=== PATIENT | male | born 1970 | race American Indian/Alaskan Native ===

== ENCOUNTER 2017-04-24 19:26 | Inpatient (IN) | payer OTHER ==
[2017-04-24 20:24] LABS: BASO # 0.01 K/mm3 (0.0-2.0); BASO % 0.1 % (0.0-3.0); EOS % 0.1 % (1.5-5.0); GRAN # 5.29 (1.4-6.5); GRAN % 69.8 % (50.0-68.0); HEMOGLOBIN 15.7 gm/dL (14.0-18.0); LYMPH # 1.3 (1.2-3.4); LYMPH % 16.7 % (22.0-35.0); MEAN CELL VOLUME 89.4 fL (80.0-105.0); MEAN CORPUSCULAR HGB CONC 35.8 g/dl (31.0-37.0); MEAN PLATELET VOLUME 9.6 fl (7.0-11.0); MONO % 13.3 % (1.0-6.0); PLATELET COUNT 183 10^3/uL (120.0-450.0); RED CELL DISTRIBUTION WIDTH 12.2 % (11.5-14.5); WHITE BLOOD COUNT 7.6 10^3/ul (4.5-11.0)
[2017-04-24 20:26] LABS: VENOUS BLOOD GAS BASE EXCESS 1.3 mmol/L (0.0-2.0); VENOUS BLOOD GAS PO2 36 mm/Hg (30-55); VENOUS BLOOD PH 7.42 (7.32-7.43)
[2017-04-24 20:58] LABS: INFLUENZA A B NEGATIVE FOR FLU A/B (NEGATIVE)
--- NOTE | 2017-04-24 21:16 | ED PDOC ---
Arrival/HPI - General Chief Complaint: Flu-like Symptoms Time Seen by Provider: 04/24/17 19:44 Historian: Patient - History of Present Illness Narrative History of Present Illness (Text): 04/24/17 19:45 Dony Vogt is a 46 year old male who presents to the Emergency department complaining of fever for 5 days. Patient reports associated chills and poor appetite. Patient denies any chest pain, shortness of breath, nausea, vomiting, diarrhea, urinary symptoms, back pain, neck pain, headache, dizziness, or any other complaints. Time/Duration: < week (5 days) Symptom Onset: Gradual Symptom Course: Unchanged Activities at Onset: Rest, Light Context: Home Past Medical History - Provider Review Nursing Documentation Reviewed: Yes - Psychiatric Hx Substance Use: No - Anesthesia Hx Anesthesia: No Family/Social History - Physician Review Nursing Documentation Reviewed: Yes Family/Social History: Unknown Family HX Smoking Status: Never Smoked Hx Alcohol Use: Yes Frequency of alcohol use: Socially Hx Substance Use: No Allergies/Home Meds Allergies/Adverse Reactions: Allergies No Known Allergies Allergy (Verified 04/24/17 19:34) Home Medications: Home Meds Medication Instructions Recorded Confirmed No Known Home Med 04/24/17 04/24/17 Review of Systems - Physician Review All systems were reviewed & negative as marked: Yes - Review of Systems Constitutional: Fevers, Other (+chills) Eyes: Normal ENT: Normal Respiratory: Normal Cardiovascular: Normal Gastrointestinal: Appetite Changes (+poor appetite) Genitourinary Male: Normal Musculoskeletal: Normal Skin: Normal Neurological: Normal Endocrine: Normal Hemo/Lymphatic: Normal Psychiatric: Normal Physical Exam Vital Signs Reviewed: Yes Vital Signs Temp Pulse Resp BP Pulse Ox 04/25/17 00:15 102.8 F H 04/24/17 23:35 89 18 152/102 H 99 04/24/17 23:26 102.8 F H 04/24/17 22:06 95 H 18 148/84 99 04/24/17 20:13 103.2 F H 107 H 18 167/96 H 99 Temperature: Febrile Blood Pressure: Hypertensive Pulse: Regular Respiratory Rate: Normal Appearance: Positive for: Well-Appearing, Non-Toxic, Comfortable Pain Distress: None Mental Status: Positive for: Alert and Oriented X 3 - Systems Exam Head: Present: Atraumatic, Normocephalic Pupils: Present: PERRL Extroacular Muscles: Present: EOMI Conjunctiva: Present: Normal Mouth: Present: Moist Mucous Membranes Neck: Present: Normal Range of Motion Respiratory/Chest: Present: Clear to Auscultation, Good Air Exchange. No: Respiratory Distress, Accessory Muscle Use Cardiovascular: Present: Regular Rate and Rhythm, Normal S1, S2. No: Murmurs Abdomen: Present: Normal Bowel Sounds. No: Tenderness, Distention, Peritoneal Signs Back: Present: Normal Inspection Upper Extremity: Present: Normal Inspection. No: Cyanosis, Edema Lower Extremity: Present: Normal Inspection. No: Edema Neurological: Present: GCS=15, CN II-XII Intact, Speech Normal Skin: Present: Warm, Dry, Normal Color. No: Rashes Psychiatric: Present: Alert, Oriented x 3, Normal Insight, Normal Concentration Medical Decision Making ED Course and Treatment: 04/24/17 19:45 Impression: 46 year old male complaining of fever, chills, and poor appetite x 5 days. Plan: -- EKG -- Chest X-ray -- Labs, VBG, blood cultures, throat cultures -- Rapid strep, rapid influenza -- Urinalysis, urine cultures -- Tylenol -- Reassess and disposition Progress Notes: Reviewed EKG, NSR at [address]-segment elevations or depressions, no T-wave inversions, normal intervals. 04/24/17 21:15 Reviewed radiology, Chest X-ray shows left upper lobe infiltrate. 04/24/17 22:10 Multiple calls placed to Dr. Lopez, no call back. 04/24/17 22:12 Case discussed with medical assembly communications program manager, who is aware and agrees with plan. 04/24/17 22:[address] Layton, who is aware and agrees with plan. Accepts pt in to hospitalist service. Pt will be admitted to [facility] for pneumonia. Pt in no acute distress. Discussed results and hospital admission plan with pt, who is aware and verbalizes understanding. - Lab Interpretations Lab Results: 04/24/17 19:45 04/24/17 19:45 Lab Results 04/24/17 21:30: Urine Color Yellow, Urine Appearance Sl cloudy, Urine pH 6.5, Ur Specific [place] 1.025, Urine Protein >=300 H, Urine Glucose (UA) Negative, Urine Ketones Trace H, Urine Blood Small H, Urine Nitrate Negative, Urine Bilirubin Negative, Urine Urobilinogen >=8.0, Ur Leukocyte Esterase Negative, Urine RBC 2 - 5, Urine WBC 2 - 5, Ur Epithelial Cells 4 - 5, Urine Bacteria Mod 04/24/17 20:20: Influenza Typ A,B (EIA) Negative for flu a/b, Grp A Beta Strep Ag Negative 04/24/17 19:45: Sodium 134, Chloride 95 L, Potassium 4.3, Carbon Dioxide 26, Anion Gap 17, BUN 16, Creatinine 1.1, Est GFR ( Amer) > 60, Est GFR (Non- Af Amer) > 60, Random Glucose 105, Calcium 9.0, Magnesium 2.2, Total Bilirubin 0.6, AST 45, ALT 55, Alkaline Phosphatase 67, Total Protein 7.7, Albumin 4.0, Globulin 3.7, Albumin/Globulin Ratio 1.1 04/24/17 19:45: pO2 36, VBG pH 7.42, VBG pCO2 40.0, VBG HCO3 25.9, VBG Total CO2 27.1, VBG O2 Sat (Calc) 76.8 H, VBG Base Excess 1.3, VBG Potassium 4.2, Sodium 132.0, Chloride 96.0 L, Glucose 113 H, Lactate 2.3 H, FiO2 21.0, Venous Blood Potassium 4.2 04/24/17 19:45: WBC 7.6, RBC 4.90, Hgb 15.7, Hct 43.8, MCV 89.4, MCH 32.0, MCHC 35.8, RDW 12.2, Plt Count 183, MPV 9.6, Gran % 69.8 H, Lymph % (Auto) 16.7 L, [place] % (Auto) 13.3 H, Eos % (Auto) 0.1 L, Baso % (Auto) 0.1, Gran # 5.29, Lymph # 1.3, [place] # 1.0 H, Eos # 0.0, Baso # 0.01 I have reviewed the lab results: Yes - RAD Interpretation Radiology Orders: 04/24/17 19:55 CHEST TWO VIEWS (PA/LAT) [RAD] Stat Button Grader: ED Physician - EKG Interpretation Interpreted by ED Physician: Yes Type: 12 lead EKG - Medication Orders Current Medication Orders: Acetaminophen (Tylenol 325mg Tab) 650 mg PO Q4H PRN PRN Reason: Temperature Last Admin: 04/25/17 00:15 Dose: 650 mg Ceftriaxone Sodium (Rocephin 1 Gram Ivpb) 1 gm in 100 mls @ 100 mls/hr IVPB DAILY RHEA PRN Reason: Protocol Azithromycin (Zithromax 500mg In Ns) 500 mg in 250 mls @ 167 mls/hr IVPB DAILY RHEA PRN Reason: Protocol Pantoprazole Sodium (Protonix Inj) 40 mg IVP DAILY RHEA Discontinued Medications Acetaminophen (Tylenol 325mg Tab) 650 mg PO STAT STA Stop: 04/24/17 20:42 Last Admin: 04/24/17 20:50 Dose: 650 mg Ceftriaxone Sodium (Rocephin 1 Gram Ivpb) 1 gm in 100 mls @ 200 mls/hr IVPB STAT STA PRN Reason: Protocol Stop: 04/24/17 21:50 Last Admin: 04/24/17 21:50 Dose: 200 mls/hr Azithromycin (Zithromax 500mg In Ns) 500 mg in 250 mls @ 167 mls/hr IVPB STAT STA PRN Reason: Protocol Stop: 04/24/17 22:50 Last Admin: 04/25/17 00:05 Dose: 167 mls/hr - Scribe Statement The provider has reviewed the documentation as recorded by the Scribmaikel Moe All medical record entries made by the Naheedibmaikel were at my direction and personally dictated by me. I have reviewed the chart and agree that the record accurately reflects my personal performance of the history, physical exam, medical decision making, and the department course for this patient. I have also personally directed, reviewed, and agree with the discharge instructions and disposition. Disposition/Present on Arrival - Present on Arrival Any Indicators Present on Arrival: No History of DVT/PE: No History of Uncontrolled Diabetes: No Urinary Catheter: No History of Decub. Ulcer: No History Surgical Site Infection Following: None - Disposition Have Diagnosis and Disposition been Completed?: Yes Diagnosis: Pneumonia Disposition: HOSPITALIZED Disposition Time: 22:45 Condition: GOOD
[2017-04-24] MEDS ORDERED: cefTRIAXone 1 gm 1 GM/100 ML BAG IVPB STA (21:21)
[2017-04-24 21:24] LABS: ALB/GLOB RATIO 1.1 (1.1-1.8); ALT/SGPT 55 U/L (7-56); AST/SGOT 45 U/L (15-59); BLOOD UREA NITROGEN 16 mg/dL (7-21); GFR AFRICAN-AMERICAN > 60; GFR NON-AFRICAN AMERICAN > 60; MAGNESIUM 2.2 mg/dL (1.7-2.2)
[2017-04-24 21:48] LABS: PH,URINE 6.5 (4.7-8.0); URINE BILIRUBIN NEGATIVE (NEGATIVE); URINE BLOOD SMALL (NEGATIVE); URINE GLUCOSE (UA) NEGATIVE (NEGATIVE); URINE LEUKOCYTE ESTERASE NEGATIVE Leu/uL (NEGATIVE); URINE NITRATE NEGATIVE (NEGATIVE); URINE PROTEIN >=300 mg/dL (<30 mg/dL); URINE UROBILINOGEN >=8.0 E.U./dL (<1 E.U./dL)
[2017-04-24 21:55] LABS: URINE APPEARANCE SL CLOUDY (CLEAR); URINE COLOR YELLOW (YELLOW)
[2017-04-24 22:02] LABS: URINE BACTERIA MOD (NEG)
[2017-04-24] MEDS: Azithromycin 500MG/NS 250ml 500 MG/250 ML BAG IVPB STA (22:14)
[2017-04-25] MEDS: Azithromycin 500MG/NS 250ml 500 MG/250 ML BAG IVPB STA (00:05)
[2017-04-25 00:26] LABS: VENOUS BLOOD GAS BASE EXCESS -1.2 mmol/L (0.0-2.0); VENOUS BLOOD GAS PO2 38 mm/Hg (30-55); VENOUS BLOOD PH 7.39 (7.32-7.43)
--- NOTE | 2017-04-25 00:58 | CP.PCM.HP ---
<DELORIS ESTES - Last Filed: 04/25/17 00:50> History of Present Illness - History of Present Illness History of Present Illness: 46 yo M presents with cc of fever and chills. Pt states that he began to feel ill 5 days ago and has progressively worsened. Pt reports intermittent BERNARD as well decreased appetite during this time, however pt denied any nausea or vomiting. Pt denied any alleviating or aggravating factors. Pt denied CP, palpatations, SOB, cough, abdominal pain, diarrhea, constipation, syncopal episodes, body aches, or any recent sick contacts. PMHx: denied Surg: denied FHx: DM All: denied SH: Occasional EtOH, denied tobacco and illict drug use Present on Admission - Present on Admission Any Indicators Present on Admission: No Review of Systems - Review of Systems All systems: reviewed and no additional remarkable complaints except (12 point ROS negative other than those stated in HPI) Past Patient History - Past Social History Smoking Status: Never Smoked - PSYCHIATRIC Hx Substance Use: No - SURGICAL HISTORY Hx Surgeries: No - ANESTHESIA Hx Anesthesia: No Meds Allergies/Adverse Reactions: Allergies Allergy/AdvReac Type Severity Reaction Status Date / Time No Known Allergies Allergy Verified 04/24/17 19:34 Physical Exam - Constitutional Appears: No Acute Distress - Head Exam Head Exam: ATRAUMATIC, NORMOCEPHALIC - Eye Exam Eye Exam: EOMI, PERRL - ENT Exam ENT Exam: Mucous Membranes Moist - Neck Exam Neck exam: Positive for: Full Rom. Negative for: Lymphadenopathy, Tenderness, Thyromegaly - Respiratory Exam Respiratory Exam: Clear to Auscultation Bilateral. absent: Rales, Rhonchi, Wheezes - Cardiovascular Exam Cardiovascular Exam: RRR, +S1, +S2. absent: Diastolic murmur, Gallop, Rubs, Systolic Murmur - GI/Abdominal Exam GI & Abdominal Exam: Soft. absent: Distended, Guarding, Organomegaly, Rebound, Tenderness - Extremities Exam Extremities exam: Positive for: normal inspection. Negative for: pedal edema, tenderness - Neurological Exam Neurological exam: Alert, Oriented x3, Reflexes Normal - Skin Skin Exam: Diaphoretic, Intact, Normal Color Results - Vital Signs Recent Vital Signs: Last Vital Signs Temp 102.8 F H 04/25/17 00:15 Pulse 89 04/24/17 23:35 Resp 18 04/24/17 23:35 BP 152/102 H 04/24/17 23:35 Pulse Ox 99 04/24/17 23:35 - Labs Result Diagrams: 04/24/17 19:45 04/24/17 19:45 Labs: Laboratory Results - last 24 hr 04/24/17 23:59 pO2 38 VBG pH 7.39 VBG pCO2 39.0 L VBG HCO3 23.6 VBG Total CO2 24.8 VBG O2 Sat (Calc) 75.5 H VBG Base Excess -1.2 L VBG Potassium 4.0 Sodium 133.0 Chloride 100.0 Glucose 101 Lactate 2.0 FiO2 21.0 Venous Blood Potassium 4.0 Assessment & Plan - Assessment and Plan (Free Text) Assessment: 46 yo M who presents with cc of fever and chills will be admitted for evaluation and treatment for pneumonia. 1. Pneumonia -CXR probable consolidation in left upper lobe -F/u blood, urine, sputum cultures -Negative Flu, strep, and UA -Cont rocephin and zithromax -Tylenol PRN for fever 2. HTN -Likely 2/2 pneumonia -Cont. to monitor 3. GI/DVT PPx -Protonix -SCDs Pt was seen and discussed in detail with Dr. Layton. <Lee Layton - Last Filed: 04/25/17 03:36> Results - Vital Signs Recent Vital Signs: Last Vital Signs Temp 102.8 F H 04/25/17 00:15 Pulse 89 04/24/17 23:35 Resp 18 04/24/17 23:35 BP 152/102 H 04/24/17 23:35 Pulse Ox 99 04/24/17 23:35 - Labs Result Diagrams: 04/24/17 19:45 04/24/17 19:45 Labs: Laboratory Results - last 24 hr 04/24/17 23:59 pO2 38 VBG pH 7.39 VBG pCO2 39.0 L VBG HCO3 23.6 VBG Total CO2 24.8 VBG O2 Sat (Calc) 75.5 H VBG Base Excess -1.2 L VBG Potassium 4.0 Sodium 133.0 Chloride 100.0 Glucose 101 Lactate 2.0 FiO2 21.0 Venous Blood Potassium 4.0 Attending/Attestation - Attestation I have personally seen and examined this patient.: Yes I have fully participated in the care of the patient.: Yes I have reviewed all pertinent clinical information: Yes Notes (Text): 04/25/17 03:27 Patient was seen when he was in room # 15 in the ER. Abdi with history , physical examination, assessment and plan. Has fever with chills, anorexia , head ache of 3 days duration.Head ache is moderate, intermittent in left eye area.Give PMH of walking pneumonia once in the s, had colonoscopy 2 months ago where a polyp was removed, has family history of DM (Mother),consumes alcohol occasionally, is divorcee with 3 children, works in sales, lives in [place] in a 2 family house, uses reading glasses, has history of chest pains , and blood clot on left side one week ago.
[2017-04-25 07:27] LABS: VENOUS BLOOD GAS BASE EXCESS -2.8 mmol/L (0.0-2.0); VENOUS BLOOD GAS PO2 111 mm/Hg (30-55); VENOUS BLOOD PH 7.38 (7.32-7.43)
[2017-04-25 07:28] LABS: HEMOGLOBIN 14.5 gm/dL (14.0-18.0); MEAN CELL VOLUME 88.3 fL (80.0-105.0); MEAN CORPUSCULAR HEMOGLOBIN 31.4 pg (25.0-35.0); MEAN CORPUSCULAR HGB CONC 35.5 g/dl (31.0-37.0); MEAN PLATELET VOLUME 9.5 fl (7.0-11.0); RBC 4.62 10^6/uL (3.5-6.1); RED CELL DISTRIBUTION WIDTH 12.5 % (11.5-14.5)
[2017-04-25 07:39] LABS: ALT/SGPT 71 U/L (7-56); AST/SGOT 67 U/L (15-59); BLOOD UREA NITROGEN 15 mg/dL (7-21); CALCIUM 8.8 mg/dL (8.4-10.5); GFR AFRICAN-AMERICAN > 60; GFR NON-AFRICAN AMERICAN > 60; MAGNESIUM 2.3 mg/dL (1.7-2.2)
--- NOTE | 2017-04-25 09:27 | RAD ---
HISTORY: fall COMPARISON: No prior. TECHNIQUE: Chest PA and lateral FINDINGS: LUNGS: There is a dense alveolar infiltrate in the left upper lobe that is best seen on the lateral view. PLEURA: No significant pleural effusion identified. No pneumothorax apparent. CARDIOVASCULAR: Normal. OSSEOUS STRUCTURES: No significant abnormalities. VISUALIZED UPPER ABDOMEN: Normal. OTHER FINDINGS: None. IMPRESSION: Left upper lobe pneumonia
[2017-04-25] MEDS: cefTRIAXone 1 gm 1 GM/100 ML BAG IVPB SCH (10:58)
[2017-04-25] MEDS: Azithromycin 500MG/NS 250ml 500 MG/250 ML BAG IVPB SCH (10:59)
[2017-04-25 16:59] LABS: HEPATITIS B SURFACE AG NEGATIVE (NEGATIVE)
[2017-04-25 17:06] LABS: HEPATITIS A IGM NEGATIVE (NEGATIVE); HEPATITIS B CORE AB NEGATIVE (NEGATIVE)
[2017-04-25 17:17] LABS: HEPATITIS C ANTIBODY NEGATIVE (NEGATIVE)
--- NOTE | 2017-04-25 21:15 | CARD ---
APPROVED REPORT EKG Measurement Heart [id number] <Conclusion> Normal sinus rhythm Possible Left atrial enlargement Borderline ECG
[2017-04-26 07:43] LABS: HEMOGLOBIN 14.2 gm/dL (14.0-18.0); MEAN CELL VOLUME 88.4 fL (80.0-105.0); MEAN CORPUSCULAR HEMOGLOBIN 31.1 pg (25.0-35.0); MEAN CORPUSCULAR HGB CONC 35.1 g/dl (31.0-37.0); MEAN PLATELET VOLUME 9.3 fl (7.0-11.0); RBC 4.57 10^6/uL (3.5-6.1); RED CELL DISTRIBUTION WIDTH 12.7 % (11.5-14.5); WHITE BLOOD COUNT 4.8 10^3/ul (4.5-11.0)
[2017-04-26 07:58] LABS: ALBUMIN 3.8 g/dL (3.0-4.8); ALT/SGPT 94 U/L (7-56); AST/SGOT 72 U/L (15-59); BLOOD UREA NITROGEN 18 mg/dL (7-21); CALCIUM 8.8 mg/dL (8.4-10.5); GFR AFRICAN-AMERICAN > 60; GFR NON-AFRICAN AMERICAN > 60
[2017-04-26] MEDS: Azithromycin 500MG/NS 250ml 500 MG/250 ML BAG IVPB SCH (09:46)
[2017-04-26] MEDS: cefTRIAXone 1 gm 1 GM/100 ML BAG IVPB SCH (09:47)
--- NOTE | 2017-04-26 15:57 | CP.PCM.DIS ---
<TAIWO BUITRAGO - Last Filed: 04/26/17 15:46> Provider - Provider Date of Admission: 04/24/17 22:37 Attending physician: Breanna Gonzalez MD Primary care physician: NO PRIMARY CARE PROVIDER Consults: None Time Spent in preparation of Discharge (in minutes): 41 Hospital Course - Lab Results Lab Results: Most Recent Lab Values WBC 4.8 10^3/ul (4.5-11.0) D 04/26/17 07:30 RBC 4.57 10^6/uL (3.5-6.1) 04/26/17 07:30 Hgb 14.2 gm/dL (14.0-18.0) 04/26/17 07:30 Hct 40.4 % (42.0-52.0) L 04/26/17 07:30 MCV 88.4 fL (80.0-105.0) 04/26/17 07:30 MCH 31.1 pg (25.0-35.0) 04/26/17 07:30 MCHC 35.1 g/dl (31.0-37.0) 04/26/17 07:30 RDW 12.7 % (11.5-14.5) 04/26/17 07:30 Plt Count 188 10^3/uL (120.0-450.0) 04/26/17 07:30 MPV 9.3 fl (7.0-11.0) 04/26/17 07:30 Gran % 69.8 % (50.0-68.0) H 04/24/17 19:45 Lymph % (Auto) 16.7 % (22.0-35.0) L 04/24/17 19:45 [place] % (Auto) 13.3 % (1.0-6.0) H 04/24/17 19:45 Eos % (Auto) 0.1 % (1.5-5.0) L 04/24/17 19:45 Baso % (Auto) 0.1 % (0.0-3.0) 04/24/17 19:45 Gran # 5.29 (1.4-6.5) 04/24/17 19:45 Lymph # 1.3 (1.2-3.4) 04/24/17 19:45 [place] # 1.0 (0.1-0.6) H 04/24/17 19:45 Eos # 0.0 (0.0-0.7) 04/24/17 19:45 Baso # 0.01 K/mm3 (0.0-2.0) 04/24/17 19:45 pO2 111 mm/Hg (30-55) H 04/25/17 07:05 VBG pH 7.38 (7.32-7.43) 04/25/17 07:05 VBG pCO2 37.0 (40-60) L 04/25/17 07:05 VBG HCO3 21.9 mmol/l (21-28) 04/25/17 07:05 VBG Total CO2 23.0 mmol.L (22-28) 04/25/17 07:05 VBG O2 Sat (Calc) 99.5 % (40-65) H 04/25/17 07:05 VBG Base Excess -2.8 mmol/L (0.0-2.0) L 04/25/17 07:05 VBG Potassium 5.2 mmol/L (3.6-5.2) 04/25/17 07:05 Sodium 150.0 mmol/L (132-148) H 04/25/17 07:05 Chloride 84.0 mmol/L (98-107) L 04/25/17 07:05 Glucose 117 mg/dl (75-110) H 04/25/17 07:05 Lactate 1.1 mmol/L (0.7-2.1) 04/25/17 07:05 FiO2 21.0 % 04/25/17 07:05 Sodium 136 mmol/L (132-148) 04/26/17 07:30 Potassium 4.2 mmol/L (3.6-5.0) 04/26/17 07:30 Chloride 100 mmol/L (98-107) 04/26/17 07:30 Carbon Dioxide 24 mmol/L (21-33) 04/26/17 07:30 Anion Gap 16 (10-20) 04/26/17 07:30 BUN 18 mg/dL (7-21) 04/26/17 07:30 Creatinine 0.8 mg/dL (0.5-1.4) 04/26/17 07:30 Est GFR ( Amer) > 60 04/26/17 07:30 Est GFR (Non-Af Amer) > 60 04/26/17 07:30 Random Glucose 102 mg/dL (70-110) 04/26/17 07:30 Calcium 8.8 mg/dL (8.4-10.5) 04/26/17 07:30 Phosphorus 3.9 mg/dL (2.5-4.5) 04/25/17 07:05 Magnesium 2.3 mg/dL (1.7-2.2) H 04/25/17 07:05 Total Bilirubin 0.4 mg/dL (0.2-1.3) 04/26/17 07:30 AST 72 U/L (15-59) H 04/26/17 07:30 ALT 94 U/L (7-56) H 04/26/17 07:30 Alkaline Phosphatase 67 U/L (38-133) 04/26/17 07:30 Total Protein 7.9 g/dL (5.8-8.3) 04/26/17 07:30 Albumin 3.8 g/dL (3.0-4.8) 04/26/17 07:30 Globulin 4.0 gm/dL 04/26/17 07:30 Albumin/Globulin Ratio 1.0 (1.1-1.8) L 04/26/17 07:30 Procalcitonin 0.37 NG/ML (0.19-0.49) 04/25/17 07:53 Venous Blood Potassium 5.2 mmol/L (3.6-5.2) 04/25/17 07:05 Urine Color Yellow (YELLOW) 04/24/17 21:30 Urine Appearance Sl cloudy (CLEAR) 04/24/17 21:30 Urine pH 6.5 (4.7-8.0) 04/24/17 21:30 Ur Specific [place] 1.025 (1.005-1.035) 04/24/17 21:30 Urine Protein >=300 mg/dL (<30 mg/dL) H 04/24/17 21:30 Urine Glucose (UA) Negative mg/dL (NEGATIVE) 04/24/17 21:30 Urine Ketones Trace mg/dL (NEGATIVE) H 04/24/17 21:30 Urine Blood Small (NEGATIVE) H 04/24/17 21:30 Urine Nitrate Negative (NEGATIVE) 04/24/17 21:30 Urine Bilirubin Negative (NEGATIVE) 04/24/17 21:30 Urine Urobilinogen >=8.0 E.U./dL (<1 E.U./dL) 04/24/17 21:30 Ur Leukocyte Esterase Negative [place]/uL (NEGATIVE) 04/24/17 21:30 Urine RBC 2 - 5 /hpf (0-2) 04/24/17 21:30 Urine WBC 2 - 5 /hpf (0-6) 04/24/17 21:30 Ur Epithelial Cells 4 - 5 /hpf (0-5) 04/24/17 21:30 Urine Bacteria Mod (NEG) 04/24/17 21:30 Hepatitis A IgM Ab Negative (NEGATIVE) 04/25/17 11:30 Hep Bs Antigen Negative (NEGATIVE) 04/25/17 11:30 Hep B Core IgM Ab Negative (NEGATIVE) 04/25/17 11:30 Hepatitis C Antibody Negative (NEGATIVE) 04/25/17 11:30 HIV 1&2 Antibody Screen Negative (NEGATIVE) 04/25/17 11:30 Influenza Typ A,B (EIA) Negative for flu a/b (NEGATIVE) 04/24/17 20:20 Ur L.pneumophila Ag Negative (NEGATIVE) 04/25/17 11:00 Grp A Beta Strep Ag Negative (NEGATIVE) 04/24/17 20:20 - Hospital Course Hospital Course: Dony Vogt is a 46 year old male who presented to the [facility] emergency department complaining of fever for 5 days. A chest xray showed a probably left upper lobe pneumonia. An EKG showed NSR. Luz cultures were drawn and were all negative for growth after 24 hours. Patient was started on IV azithromycin and IV cefrtiaxone. He was febrile on admission with a TMax of 103. After 24 hours of patient remaining afebrile, he was discharged on 04/26 with PO levaquin for 5 days and instructions to follow up with his PMD to check his LFT's within one week. - Date & Time of H&P Date of H&P: 04/25/17 Time of H&P: 00:50 Discharge Exam - Head Exam Head Exam: NORMAL INSPECTION, NORMOCEPHALIC - Eye Exam Eye Exam: EOMI, Normal appearance - ENT Exam ENT Exam: Mucous Membranes Moist, Normal Exam - Neck Exam Neck exam: Full Rom, Normal Inspection - Respiratory Exam Respiratory Exam: NORMAL BREATHING PATTERN, UNREMARKABLE. absent: Rales, Rhonchi, Wheezes, Respiratory Distress - Cardiovascular Exam Cardiovascular Exam: REGULAR RHYTHM, RRR, +S1, +S2. absent: Bradycardia, Tachycardia - GI/Abdominal Exam GI & Abdominal Exam: Normal Bowel Sounds, Unremarkable. absent: Distended, Firm , Guarding, Mass, Tenderness - Extremities Exam Extremities exam: normal capillary refill, pedal pulses present Additional comments: no calf tenderness or pedal edema bilaterally - Neurological Exam Neurological exam: Alert, Normal Gait, Oriented x3 - Psychiatric Exam Psychiatric exam: Normal Affect, Normal Mood - Skin Skin Exam: Dry, Intact, Normal Color, Warm Discharge Plan - Discharge Medications Prescriptions: levoFLOXacin [Levaquin] 750 mg PO DAILY #5 tab - Follow Up Plan Condition: GOOD Disposition: HOME/ ROUTINE Instructions: Pneumococcal Vaccine for Adults (DC), Influenza Vaccine (DC), Pneumonia (DC) Additional Instructions: 1. If your symptoms persist or worsen, please seek emergency medical treatment. 2. Please follow up with your primary care doctor for a post hospitalization follow up visit and to check your LFT's within one week. 3. Please take all prescribed medications as directed for the full course of treatment. Referrals: PCP,NO [Primary Care Provider] - <Lisa VAZ,Breanna - Last Filed: 04/26/17 16:52> Provider - Provider Date of Admission: 04/24/17 22:37 Attending physician: Breanna Gonzalez MD Primary care physician: NO PRIMARY CARE PROVIDER Hospital Course - Lab Results Lab Results: Most Recent Lab Values WBC 4.8 10^3/ul (4.5-11.0) D 04/26/17 07:30 RBC 4.57 10^6/uL (3.5-6.1) 04/26/17 07:30 Hgb 14.2 gm/dL (14.0-18.0) 04/26/17 07:30 Hct 40.4 % (42.0-52.0) L 04/26/17 07:30 MCV 88.4 fL (80.0-105.0) 04/26/17 07:30 MCH 31.1 pg (25.0-35.0) 04/26/17 07:30 MCHC 35.1 g/dl (31.0-37.0) 04/26/17 07:30 RDW 12.7 % (11.5-14.5) 04/26/17 07:30 Plt Count 188 10^3/uL (120.0-450.0) 04/26/17 07:30 MPV 9.3 fl (7.0-11.0) 04/26/17 07:30 Gran % 69.8 % (50.0-68.0) H 04/24/17 19:45 Lymph % (Auto) 16.7 % (22.0-35.0) L 04/24/17 19:45 [place] % (Auto) 13.3 % (1.0-6.0) H 04/24/17 19:45 Eos % (Auto) 0.1 % (1.5-5.0) L 04/24/17 19:45 Baso % (Auto) 0.1 % (0.0-3.0) 04/24/17 19:45 Gran # 5.29 (1.4-6.5) 04/24/17 19:45 Lymph # 1.3 (1.2-3.4) 04/24/17 19:45 [place] # 1.0 (0.1-0.6) H 04/24/17 19:45 Eos # 0.0 (0.0-0.7) 04/24/17 19:45 Baso # 0.01 K/mm3 (0.0-2.0) 04/24/17 19:45 pO2 111 mm/Hg (30-55) H 04/25/17 07:05 VBG pH 7.38 (7.32-7.43) 04/25/17 07:05 VBG pCO2 37.0 (40-60) L 04/25/17 07:05 VBG HCO3 21.9 mmol/l (21-28) 04/25/17 07:05 VBG Total CO2 23.0 mmol.L (22-28) 04/25/17 07:05 VBG O2 Sat (Calc) 99.5 % (40-65) H 04/25/17 07:05 VBG Base Excess -2.8 mmol/L (0.0-2.0) L 04/25/17 07:05 VBG Potassium 5.2 mmol/L (3.6-5.2) 04/25/17 07:05 Sodium 150.0 mmol/L (132-148) H 04/25/17 07:05 Chloride 84.0 mmol/L (98-107) L 04/25/17 07:05 Glucose 117 mg/dl (75-110) H 04/25/17 07:05 Lactate 1.1 mmol/L (0.7-2.1) 04/25/17 07:05 FiO2 21.0 % 04/25/17 07:05 Sodium 136 mmol/L (132-148) 04/26/17 07:30 Potassium 4.2 mmol/L (3.6-5.0) 04/26/17 07:30 Chloride 100 mmol/L (98-107) 04/26/17 07:30 Carbon Dioxide 24 mmol/L (21-33) 04/26/17 07:30 Anion Gap 16 (10-20) 04/26/17 07:30 BUN 18 mg/dL (7-21) 04/26/17 07:30 Creatinine 0.8 mg/dL (0.5-1.4) 04/26/17 07:30 Est GFR ( Amer) > 60 04/26/17 07:30 Est GFR (Non-Af Amer) > 60 04/26/17 07:30 Random Glucose 102 mg/dL (70-110) 04/26/17 07:30 Calcium 8.8 mg/dL (8.4-10.5) 04/26/17 07:30 Phosphorus 3.9 mg/dL (2.5-4.5) 04/25/17 07:05 Magnesium 2.3 mg/dL (1.7-2.2) H 04/25/17 07:05 Total Bilirubin 0.4 mg/dL (0.2-1.3) 04/26/17 07:30 AST 72 U/L (15-59) H 04/26/17 07:30 ALT 94 U/L (7-56) H 04/26/17 07:30 Alkaline Phosphatase 67 U/L (38-133) 04/26/17 07:30 Total Protein 7.9 g/dL (5.8-8.3) 04/26/17 07:30 Albumin 3.8 g/dL (3.0-4.8) 04/26/17 07:30 Globulin 4.0 gm/dL 04/26/17 07:30 Albumin/Globulin Ratio 1.0 (1.1-1.8) L 04/26/17 07:30 Procalcitonin 0.37 NG/ML (0.19-0.49) 04/25/17 07:53 Venous Blood Potassium 5.2 mmol/L (3.6-5.2) 04/25/17 07:05 Urine Color Yellow (YELLOW) 04/24/17 21:30 Urine Appearance Sl cloudy (CLEAR) 04/24/17 21:30 Urine pH 6.5 (4.7-8.0) 04/24/17 21:30 Ur Specific [place] 1.025 (1.005-1.035) 04/24/17 21:30 Urine Protein >=300 mg/dL (<30 mg/dL) H 04/24/17 21:30 Urine Glucose (UA) Negative mg/dL (NEGATIVE) 04/24/17 21:30 Urine Ketones Trace mg/dL (NEGATIVE) H 04/24/17 21:30 Urine Blood Small (NEGATIVE) H 04/24/17 21:30 Urine Nitrate Negative (NEGATIVE) 04/24/17 21:30 Urine Bilirubin Negative (NEGATIVE) 04/24/17 21:30 Urine Urobilinogen >=8.0 E.U./dL (<1 E.U./dL) 04/24/17 21:30 Ur Leukocyte Esterase Negative Marly/uL (NEGATIVE) 04/24/17 21:30 Urine RBC 2 - 5 /hpf (0-2) 04/24/17 21:30 Urine WBC 2 - 5 /hpf (0-6) 04/24/17 21:30 Ur Epithelial Cells 4 - 5 /hpf (0-5) 04/24/17 21:30 Urine Bacteria Mod (NEG) 04/24/17 21:30 Hepatitis A IgM Ab Negative (NEGATIVE) 04/25/17 11:30 Hep Bs Antigen Negative (NEGATIVE) 04/25/17 11:30 Hep B Core IgM Ab Negative (NEGATIVE) 04/25/17 11:30 Hepatitis C Antibody Negative (NEGATIVE) 04/25/17 11:30 HIV 1&2 Antibody Screen Negative (NEGATIVE) 04/25/17 11:30 Influenza Typ A,B (EIA) Negative for flu a/b (NEGATIVE) 04/24/17 20:20 Ur L.pneumophila Ag Negative (NEGATIVE) 04/25/17 11:00 Grp A Beta Strep Ag Negative (NEGATIVE) 04/24/17 20:20 Attending/Attestation - Attestation I have personally seen and examined this patient.: Yes I have fully participated in the care of the patient.: Yes I have reviewed all pertinent clinical information, including history, physical exam and plan: Yes Notes (Text): 04/26/17 16:50 Patient was seen and examined with medical reception specialist. Agreed with resident assessment and plan. 46 M with CAP, afebrile, cultures are negative so far.Patient is feeling better , able to tolerate oral medications, will switch to oral levofloxacin and patient can be discharged home.Patient has mild elevation of transaminae, likley due to medication.Patient will need repeat LFT in one week with PCP.This was discussed in detail with him. Management plan was discussed in detail with patient Education was provided.
[2017-04-26 16:15] VITALS: BP 119/88; PULSE 70; RESP 20; TEMP 97.9; O2SAT 97
== END 2017-04-26 18:02 | disposition home or self-care (01) | DRG 90 ==
LOC: EDBD 19:26 → ED 19:26 → ERH 22:37 → 5RSO 04-25 01:02
PROVIDERS: ADMIT Internal Medicine; ATTEND Internal Medicine
DX: J18.9 Pneumonia, unspecified organism (principal); I10 Essential (primary) hypertension; Z86.010 Personal history of colon polyps; Z83.3 Family history of diabetes mellitus